=== PATIENT | male | born 1965 | race Caucasian/White ===

== ENCOUNTER 2017-11-25 13:31 | Emergency (ER) | payer OTHER, BC ==
[~2017-11-25] VITALS: Ht 177.8 cm; Wt 112.5 kg
[~2017-11-25 13:31] MED LIST: CLINDAMYCIN HC300 MG PO; MOTRIN600 MG PO
[2017-11-25 16:20] VITALS: BP 144/95
== END 2017-11-25 16:20 | disposition home or self-care (01) ==
LOC: EME 13:31
PROC: 0RSXXZZ Reposition Left Finger Phalangeal Joint, External Approach (ICD-10-PCS; principal; 2017-11-25)
PROC: 2W3KX1Z Immobilization of Left Finger using Splint (ICD-10-PCS; principal; 2017-11-25)
DX: S63.207A Unspecified subluxation of left little finger, initial encounter (principal); X50.9XXA Other and unspecified overexertion or strenuous movements or postures, initial encounter; Y93.89 Activity, other specified; Y99.0 Civilian activity done for income or pay; Z88.0 Allergy status to penicillin
CPT/HCPCS: 73140; 99281; 99284